=== PATIENT | female | born 1985 | race Two or more races ===

== ENCOUNTER 2018-05-05 20:11 | Emergency (ER) | payer MEDICAID ==
[~2018-05-05] VITALS: Ht 175.3 cm; Wt 93.9 kg
[2018-05-05] MEDS ORDERED: NKM (20:26)
[2018-05-05 20:30] VITALS: BP 138/76
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
--- NOTE | 2018-05-05 20:40 | NUR ---
ED Nurse Note: Pt was sent for CT of head.
--- NOTE | 2018-05-05 20:55 | NUR ---
ED Nurse Note: Pt returned fron CT .
[2018-05-05] MEDS ORDERED: Norco 5mg/325mg tab ORAL ONE (21:30)
--- NOTE | 2018-05-05 21:42 | NUR ---
ED Nurse Note: Pain meds given as ordered.
[2018-05-05] MEDS ORDERED: Bacitracin Oint UD TOPIC ONE (22:15)
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
[2018-05-05] MEDS ORDERED: CYCLOBENZAPRINE10 MG ORAL (23:26)
[2018-05-05] MEDS ORDERED: IBUPROFEN600 MG ORAL (23:26)
[2018-05-05] MEDS ORDERED: NORCO 5-325 TA1 EACH ORAL (23:26)
[2018-05-05 23:37] VITALS: BP 134/72
--- NOTE | 2018-05-05 23:37 | NUR ---
ER DISCHARGE NOTE: Patient is cleared to be discharged per Dr. Oconnell. CT of head done and multiple X-ray done, no fracture were found at this time. Pt is A/o x 4 on room air with stable vital signs. Pt was given dc and prescription instructions, pt was able to verbalize understanding, pt id band removed . pt is able to ambulate with cruches, pt took all belongings. Provided Taxi to take pt to home.
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
== END 2018-05-05 23:37 | disposition home or self-care (01) ==
LOC: EDBD 20:11 → EMR 20:27
DX: S16.1XXA Strain of muscle, fascia and tendon at neck level, initial encounter (principal); S80.01XA Contusion of right knee, initial encounter; M54.5 Low back pain; V13.4XXA Pedal cycle driver injured in collision with car, pick-up truck or van in traffic accident, initial encounter; Y93.55 Activity, bike riding; Y92.488 Other paved roadways as the place of occurrence of the external cause
CPT/HCPCS: 70450; 71250; 72125; 74176; 81025; 99284

== ENCOUNTER 2018-06-29 12:48 | Emergency (ER) | payer SELFPAY, MEDICAID ==
[~2018-06-29] VITALS: Ht 175.3 cm; Wt 92.5 kg
[~2018-06-29 12:48] MED LIST: CYCLOBENZAPRINE10 MG ORAL; IBUPROFEN600 MG ORAL; NKM; NORCO 5-325 TA1 EACH ORAL
--- NOTE | 2018-06-29 12:50 | NUR ---
ER DISCHARGE NOTE: Patient is cleared to be discharged per ERPA and assisted clearance done, pt is aox4, accompanied by , on room air, with stable vital signs. pt was given dc instructions, pt was able to verbalize understanding, pt id band removed. pt is able to ambulate with steady gait with handcuff on. pt took all belongings.
[2018-06-29 12:53] VITALS: BP 114/85
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
== END 2018-06-29 13:10 | disposition home or self-care (01) ==
LOC: EMR 13:05
DX: G89.29 Other chronic pain (principal); M54.2 Cervicalgia; M54.9 Dorsalgia, unspecified
CPT/HCPCS: 99282